=== PATIENT | female | born 1995 ===

== ENCOUNTER 2021-03-08 14:34 | Emergency (ER) | payer SELFPAY ==
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
== END 2021-03-08 15:39 | disposition home or self-care (01) ==
LOC: MW.ED 14:34
DX: S20.213A Contusion of bilateral front wall of thorax, initial encounter (principal); Y04.0XXA Assault by unarmed brawl or fight, initial encounter
CPT/HCPCS: 99283